=== PATIENT | male | born 1960 | race Caucasian/White ===

== ENCOUNTER 2021-10-23 09:35 | Outpatient (CLI) | payer OTHER | END 2021-10-23 09:36 | disposition home or self-care (01) | LOC: CSHRAD 09:35 | PROVIDERS: ATTEND Family Medicine | DX: M72.2 Plantar fascial fibromatosis (principal); M54.50 Low back pain, unspecified; M77.31 Calcaneal spur, right foot; M51.36 Other intervertebral disc degeneration, lumbar region | CPT/HCPCS: 72100 ==